=== PATIENT | female | born 1950 | race Caucasian/White ===

== ENCOUNTER 2017-06-30 04:31 | Emergency (ER) ==
[2017-06-30 04:46] VITALS: BP 122/75; TEMP 98.8; BMI 31.8
[2017-06-30] MEDS ORDERED: ZOFRAN 4 MG/2 ML IVP STA (05:21)
[2017-06-30] MEDS ORDERED: SODIUM CHLORIDE 1,000 ML IV STA ×2 (05:21)
--- NOTE | 2017-06-30 06:15 | CT ---
EXAM: CT abdomen pelvis without intravenous contrast 06/30/2017. Sagittal and coronal reformatted i mages obtained HISTORY: Vomiting COMPARISON: 03/21/2017 FINDINGS: The liver and gallbladder show no acute abnormality. Stable benign right adrenal adenoma and benign left adrenal myelolipoma. Nonobstructive left nephrolithiasis measures approximate 2 mm diameter. No hydronephrosis. The kidn eys show no acute process. The spleen pancreas show no acute abnormality. There is no bowel obstruction. The appendix is keisha l. No free air free fluid. Air-fluid levels are present throughout the colon. This may relate to enteritis/diarrhea. Correlate clinically. Severe degenerative disc disease at L3-L4. No acute osseous abnormality. IMPRESSION: 1. Air-fluid levels of the ascending and transverse colon. This could relate to enteritis/diarrhea. Correlate clinically. 2. No urinary or bowel obstruction and normal appendix. 3. Partially limited characterization due to the lack of intravenous contrast 4. Additional chronic findings as above.
--- NOTE | 2017-06-30 06:24 | ED.PDOC ---
General ED Provider: Dr. GULSHAN DSOUZA-ER Chief Complaint: Nausea/Vomiting Stated Complaint: im dehydrated--pamela had vomiting and nonbloody diarhea for 2 days Time Seen by Physician: 04:40 Mode of Arrival: Walk-In Information Source: Patient, Family Exam Limitations: No limitations Primary Care Provider: KWADWO PENNY Nursing and Triage Documentation Reviewed and Agree: Yes Reviewed sepsis parameters & appropriate labs ordered?: Yes System Inflammatory Response Syndrome: Not Applicable Sepsis Protocol: For patient's 13 years and over: Temp is 96.8 and below OR 101 and greater Pulse >90 BPM Resp >20/minute Acutely Altered Mental Status Are patient's symptoms suggestive of a new infection, such as: -Pneumonia -Skin, Soft Tissue -Endocarditis -UTI -Bone, Joint Infection -Implantable Device -Acute Abdominal Infection -Wound Infection -Meningitis -Blood Stream Catheter Infection -Unknown GI Complaint Exam - Vomiting/Diarrhea Complaint/Exam Onset/Duration: 48hrs Symptoms Are: Still present Initial Severity: Mild Current Severity: Moderate Character of Vomiting: Reports: Non-bilious Character of Diarrhea: Reports: Watery Aggravating: Reports: None Alleviating: Reports: Clear liquids Associated Signs and Symptoms: Denies: Dizziness, Light-headedness, Melena, Hematemesis, Fever, Abdominal pain, Cramping Related History: Reports: Recent antibiotics Abdominal Findings: Present: None Kussmaul Respirations Present: No Differential Diagnoses: Dehydration, Viral Gastroenteritis, Bacterial Gastroenteritis, UTI Review of Systems - Review Of Systems Constitutional: Reports: No symptoms Eyes: Reports: No symptoms Ears, Nose, Mouth, Throat: Reports: No symptoms Respiratory: Reports: No symptoms Cardiac: Reports: No symptoms GI: Reports: Diarrhea, Nausea, Poor appetite, Vomiting : Reports: No symptoms Musculoskeletal: Reports: No symptoms Skin: Reports: No symptoms Neurological: Reports: No symptoms Endocrine: Reports: No symptoms Hematologic/Lymphatic: Reports: No symptoms All Other Systems: Reviewed and Negative Past Medical History - Past Medical History Previously Healthy: No Endocrine: Reports: Unknown Cardiovascular: Reports: Unknown Respiratory: Reports: Unknown Hematological: Reports: Unknown Gastrointestinal: Reports: Unknown Genitourinary: Reports: Unknown Neuro/Psych: Reports: Unknown Musculoskeletal: Reports: Unknown Cancer: Reports: Unknown Last Menstrual Period: 1976 - Surgical History General Surgical History: Reports: Unknown - Family History Family History: Reports: Unknown - Social History Smoking Status: Current every day smoker, Light tobacco smoker Hx Substance Use: No Alcohol Screening: None Lives: With family - Immunizations Tetanus Shot up to Date: Yes Physical Exam - Physical Exam Appearance: Ill-appearing Ill-appearing: Mild Eyes: MONY, EOMI, Conjunctiva clear ENT: Dry mucosa Neck: Supple Respiratory: Airway patent, Breath sounds clear, Breath sounds equal, Respirations nonlabored Cardiovascular: RRR GI/: Soft Musculoskeletal: Normal strength, ROM intact, No edema, No calf tenderness Skin: Warm, Dry, Normal color Neurological: Sensation intact, Motor intact, Reflexes intact, Cranial nerves intact, Alert, Oriented Psychiatric: Affect appropriate, Mood appropriate Interpretation - Radiology Interpretation Radiology Interpretation By: Radiologist Radiology Results: Negative Exam Interpreted: CT Scan - EKG Interpretation Time of EKG #1: 06:25 Rate: Tachy Rhythm: Sinus Ectopy: None [place]: NL ST Segment: Normal Re-Evaluation - Re-Evaluation Time of Re-Evaluation: 06:25 Status: Improved Vital Signs Stable: Yes Pain Level: 0 Appearance: NAD Lungs: Clear Skin: Warm and Dry Neuro: Alert and Oriented X3 CV: RRR Critical Care Note - Critical Care Note Total Time (mins): 0 Course - Course Hematology/Chemistry: 06/30/17 05:50 06/30/17 05:50 Orders, Labs, Meds: Lab Review 06/30/17 06/30/17 06/30/17 05:30 05:50 05:50 WBC 8.87 RBC 4.50 Hgb 14.1 Hct 41.2 MCV 91.6 MCH 31.3 H MCHC 34.2 RDW Coeff of Benita 12.3 Plt Count 228 Immature Gran % (Auto) 0.3 Neut % (Auto) 57.2 Lymph % (Auto) 25.8 [place] % (Auto) 15.1 H Eos % (Auto) 1.1 Baso % (Auto) 0.5 Immature Gran # (Auto) 0.0 Neut # (Auto) 5.1 Lymph # (Auto) 2.3 [place] # (Auto) 1.3 Eos # (Auto) 0.1 Baso # (Auto) 0.0 Sodium 139 Potassium 4.4 Chloride 101 Carbon Dioxide 25 Anion Gap 17.4 BUN 15 Creatinine 0.80 Estimated GFR (MDRD) 72.00 BUN/Creatinine Ratio 18.75 Glucose 264 H Calcium 9.5 Total Bilirubin 0.9 AST 20 ALT 38 Alkaline Phosphatase 63 Total Protein 7.2 Albumin 3.6 Globulin 3.6 Albumin/Globulin Ratio 1.00 Amylase 49 Lipase 17 Influ A Molecular Assay Negative by naat Influ B Molecular Assay Negative by naat Orders Category Date Time Status EKG-(ED ONLY) Stat CARDIO 06/30/17 05:20 Completed C-DIFF MONITORING (NURSING) BID CARE 06/30/17 06:19 Active ED IV/MEDIPORT/POWERPORT .ONCE EMERGENCY 06/30/17 05:21 Active AMYLASE Stat LAB 06/30/17 05:50 Completed C. DIFFICILE Routine LAB 06/30/17 06:20 Ordered CBC W/ AUTO DIFF Stat LAB 06/30/17 05:50 Completed COMPREHENSIVE METABOLIC PANEL Stat LAB 06/30/17 05:50 Completed FLU A/B MOLECULAR Stat LAB 06/30/17 05:30 Completed LIPASE Stat LAB 06/30/17 05:50 Completed MOLECULAR GROUP A STREP Stat LAB 06/30/17 05:30 Completed STOOL CULTURE Stat LAB 06/30/17 Ordered URINALYSIS C & S IF INDICATED Stat LAB 06/30/17 06:16 Ordered 0.9 % Sodium Chloride [Saline Flush] MEDS 06/30/17 05:21 Ordered 1 syr IVF PRN PRN Ondansetron HCl/Pf [Zofran 4 mg/2 ml] MEDS 06/30/17 05:21 Discontinued 4 mg IVP ONCE STA Sodium Chloride 0.9% [Sodium Chloride] 1,000 ml MEDS 06/30/17 05:21 Discontinued IV BOLUS Sodium Chloride 0.9% [Sodium Chloride] 1,000 ml MEDS 06/30/17 05:[address] ABDOMEN/PELVIS WO CONTRAST Stat RADS 06/30/17 05:22 Completed Medications Generic Name Dose Route Start Last Admin Trade Name Freq PRN Reason Stop Dose Admin Sodium Chloride 1 syr 06/30/17 05:21 06/30/17 05:49 Saline Flush IVF 1 syr PRN PRN Administration To flush IV Discontinued Medications Generic Name Dose Route Start Last Admin Trade Name Freq PRN Reason Stop Dose Admin Sodium Chloride 1,000 mls @ 1,000 mls/hr 06/30/17 05:21 06/30/17 05:49 Sodium Chloride IV 06/30/17 06:20 1,000 mls/hr BOLUS STA Administration Sodium Chloride 1,000 mls @ 1,000 mls/hr 06/30/17 05:21 Sodium Chloride IV 06/30/17 06:20 BOLUS STA Ondansetron HCl 4 mg 06/30/17 05:21 06/30/17 05:49 Zofran 4 Mg/2 Ml IVP 06/30/17 05:22 4 mg ONCE STA Administration i wanted to admit ms hawkins but she declines0--she understands risk--her stool is foul smelling and she had antbx for dental infection approx 2 weeks ago ? c diff? Vital Signs: Temp Pulse Resp BP Pulse Ox 06/30/17 04:32 98.8 F 143 H 20 122/75 93 L Departure - Departure Time of Disposition: 06:27 Disposition: HOME SELF-CARE Discharge Problem: Dehydration Instructions: Enteritis (ED) Condition: Good Pt referred to PMD for follow-up: Yes IPMP verified?: No Additional Instructions: flagyl 250mg tid x 7days--zofran 4mg q 4hrs prn nausea #6--clear liquids and advance--recheck in 48hrs if not improved Allergies/Adverse Reactions: Allergies No Known Allergies Allergy (Unverified 06/30/17 04:42) Home Medications: Ambulatory Orders Aspirin [Aspirin EC] 81 mg PO DAILY 06/30/17 Atenolol [Tenormin] 50 mg PO DAILY 06/30/17 Cholecalciferol (Vitamin D3) [Vitamin D] 2,000 unit PO BID 06/30/17 Estrogens, Conjugated [Premarin] 0.625 mg PO DAILY 06/30/17 Fenofibrate Nanocrystallized [Fenofibrate] 145 mg PO BEDTIME 06/30/17 Gabapentin [Neurontin] 100 mg PO BEDTIME 06/30/17 Glipizide [Glucotrol] 20 mg PO BID 06/30/17 Insulin Aspart [Novolog] 1 unit SQ DIRECTED 06/30/17 Insulin Glargine,Hum.rec.anlog [Lantus] 28 - 35 unit SUBCUT BID 06/30/17 Levothyroxine Sodium [Synthroid] 75 mcg PO QDAC 06/30/17 Magnesium Oxide [Magnesium] 400 mg PO DAILY 06/30/17 Metformin HCl [Glucophage] 1,000 mg PO BID 06/30/17 Olmesartan Medoxomil [Benicar] 20 mg PO BEDTIME 06/30/17 Reading-3/Dha/Epa/Fish Oil [Reading-3 Fish Oil] 1,000 mg PO TID 06/30/17 Pantoprazole Sodium [Protonix] 40 mg PO BID 06/30/17 Disposition Discussed With: Patient, Family
== END 2017-06-30 08:35 | disposition home or self-care (01) ==
LOC: ED 04:31
DX: E86.0 Dehydration (principal); K52.9 Noninfective gastroenteritis and colitis, unspecified; F17.210 Nicotine dependence, cigarettes, uncomplicated
CPT/HCPCS: 36415; 80053; 81001; 82150; 83690; 85025; 87015; 87045; 87086; 87186; 87493; 87502; 87651; 87899; 93005; 93010; 96361; 96374; 99283